=== PATIENT | female | born 1955 | race Two or more races ===

== ENCOUNTER 2016-10-12 10:30 | Inpatient (IN) | payer OTHER ==
[~2016-10-12] VITALS: Ht 165.1 cm; Wt 86.2 kg
[2016-10-23] VITALS (11 sets, daily range): BP systolic 131–150; BP diastolic 66–81
[2016-10-23] MEDS ORDERED: LYRICA150 MG ORAL (09:32)
[2016-10-23] MEDS ORDERED: LEVOTHYROXINE75 MCG ORAL (09:32)
[2016-10-23] MEDS ORDERED: ATORVASTATIN CA20 MG ORAL (09:32)
[2016-10-23] MEDS ORDERED: Vancomycin 1gm inj IVPB ONE (10:04)
[2016-10-23] MEDS ORDERED: Thrombin 5000 units TOPIC ONE (10:04)
[2016-10-23] MEDS ORDERED: Bacitracin 50000 Units Vial ONE (10:05)
[2016-10-23] MEDS ORDERED: Bupivacaine w/Epi 0.5% 30ml Vial INJ ONE (10:05)
[2016-10-23] MEDS ORDERED: NS Irrig 1000ml ONE (11:00)
[2016-10-23] MEDS ORDERED: LR 1000ml ONE (11:00)
[2016-10-23] MEDS ORDERED: fentaNYL 100 mcg/2 mL IV ONE (11:00)
[2016-10-23] MEDS ORDERED: Esmolol 100mg/10ml Inj ONE (11:00)
[2016-10-23] MEDS ORDERED: Propofol 10mg/ml 20ml IV ONE (11:00)
[2016-10-23] MEDS ORDERED: Midazolam 2mg/2ml Inj ONE (11:00)
[2016-10-23] MEDS ORDERED: Zemuron 50mg/5ml Inj IV ONE (11:00)
[2016-10-23] MEDS ORDERED: Sterile Water Irrig 1000ml IRRIG ONE (11:00)
[2016-10-23] MEDS ORDERED: Propofol 10mg/ml 100ml btl IV ONE (11:00)
--- NOTE | 2016-10-23 11:13 | Pre-Procedure Note/Attestation ---
Pre-Procedure Note/Attestation Complete Prior to Procedure Procedure Narrative: acdf [id number] Indications for Procedure Pre-Operative Diagnosis: cervical radic Attestation I attest that I discussed the nature of the procedure; its benefits; risks and complications; and alternatives (and the risks and benefits of such alternatives ), prior to the procedure, with the patient (or the patient's legal front desk representative). I attest that, if there was a reasonable possibility of needing a blood transfusion, the patient (or the patient's legal front desk representative) was given the [facility] standardized written summary, pursuant to the Davon Misael Blood Safety Act ([place] Health and Safety Code # 1645, as amended). I attest that I re-evaluated the patient just prior to the surgery and that there has been no change in the patient's H&P, except as documented below: SHAN MCKEON Oct 23, 2016 11:13
[2016-10-23] MEDS ORDERED: LR 1000ml 1,000 ML IVLG SCH (12:26)
[2016-10-23] MEDS ORDERED: LORazepam Inj 2mg/ml 1ml IV PRN (12:30)
[2016-10-23] MEDS ORDERED: Meperidine 25mg/ml Inj IV PRN (12:30)
[2016-10-23] MEDS ORDERED: Labetalol 5mg/ml 20ml vial IV PRN (12:30)
[2016-10-23] MEDS ORDERED: LR 1000ml 1,000 ML IV SCH (12:30)
--- NOTE | 2016-10-23 12:32 | Anethesia Preoperative Eval ---
Anesthesia Pre-op PMH/ROS General Date of Evaluation: Oct 23, 2016 Time of Evaluation: 11:00 Anesthesiologist: Melinda ASA Score: ASA 2 Mallampati Score Class I : Soft palate, uvula, fauces, pillars visible Class II: Soft palate, uvula, fauces visible Class III: Soft palate, base of uvula visible Class IV: Only hard plate visible Mallampati Classification: Class II Surgeon: Corey Diagnosis: Cervical radiculopathy Surgical Procedure: ACDG C6-7 Allergies: Coded Allergies: No Known Allergies (Unverified , 10/20/16) Medications: see eMAR Past Medical History Cardiovascular: Denies: CAD, HTN, TN, arrhythmia, other, valve dz Pulmonary: Denies: COPD, KEO, asthma, other Gastrointestinal/Genitourinary: Reports: GERD, Denies: CRI, ESRD, other Neurologic/Psychiatric: Denies: CVA, TIA, dementia, depression/anxiety, other Endocrine: Reports: hypothyroidism, Denies: DM, other, steroids HEENT: Denies: [place] (L), L[place] (R), cataract (L), cataract (R), glaucoma, other Hematology/Immune: Denies: DVT, anemia, bleeding disorder, other Musculoskeletal/Integumentary: Denies: DDD, DJD, OA, RA, edema, other PMH Narrative: GERD, hypothyroid, hypercholesterolemia PSxH Narrative: Cholecystectomy Anesthesia Pre-op Phys. Exam Physician Exam Last Vital Signs Date Time Temp Pulse Resp B/P Pulse Ox O2 Delivery O2 Flow Rate FiO2 10/23/16 09:39 98.9 84 16 131/81 96 Room Air Constitutional: NAD Neurologic: CN 2-12 intact Cardiovascular: RRR, no M/R/G Respiratory: CTA Gastrointestinal: S/NT/ND Airway Exam Mallampati Score: Class II MO: full ROM: full Teeth: intact Anesthesia Pre-op A/P Labs WNL Studies Pre-op Studies: EKG - NSR Risk Assessment & Plan Assessment: Hypothyroid female for ACDF Plan: Robert SANCHEZ scope Status Change Before Surgery: No Pre-Antibiotics Drug: Ancef Given Within 1 Hr of Incision: Yes Time Given: 11:15 LIS PERLA M.D. Oct 23, 2016 12:32
--- NOTE | 2016-10-23 12:33 | Immediate Post-Op Evaluation ---
Immediate Post-Op Evalulation Immediate Post-Op Evalulation Procedure: ACDF C607 Date of Evaluation: Oct 23, 2016 Time of Evaluation: 13:50 IV Fluids: 800 Estimated Blood Loss: 40 Blood Pressure Systolic: 143 Blood Pressure Diastolic: 70 Pulse Rate: 94 Respiratory Rate: 12 O2 Sat by Pulse Oximetry: 100 Temperature (Fahrenheit): 97.9 Pain Score (1-10): 0 Nausea: No Vomiting: No Complications No complication Patient Status: awake, patent, extubated, none Hydration Status: adequate Drug: Ancef Given Within 1 Hr of Incision: Yes Time Given: 11:15 LIS PERLA M.D. Oct 23, 2016 12:33
--- NOTE | 2016-10-23 13:46 | 48 Hour Post Anesthesia Eval ---
Post Anesthesia Evaluation Procedure: ACDF C607 Date of Evaluation: Oct 23, 2016 Time of Evaluation: 14:20 Blood Pressure Systolic: 136 0: 67 Pulse Rate: 86 Respiratory Rate: 16 O2 Sat by Pulse Oximetry: 100 Airway: patent Nausea: No Vomiting: No Pain Intensity: 2 Hydration Status: adequate Cardiopulmonary Status: Stable Mental Status/LOC: patient returned to baseline Follow-up Care/Observations: As per surgery Post-Anesthesia Complications: No anesthetic complication Follow-up care needed: N/A LIS PERLA M.D. Oct 23, 2016 13:46
[2016-10-23] MEDS: Hydromorphone 0.5mg/0.5ml inj IVP PRN ×2 (14:28→14:48)
--- NOTE | 2016-10-23 15:35 | Diagnostic Imaging Report ---
Indications: Neck and left upper extremity pain, cervical fusion Technique: Procedure including fluoroscopy performed by Dr. Nicole. Portable intraoperative AP and lateral spot film images of the cervical spine obtained. Findings: Comparison: None Initial image demonstrates localizing needle tip overlying the C6-7 disc space. Subsequent images demonstrate placement of fusion hardware within and across the anterior margin of the same disc space. IMPRESSION: Intraoperative changes as described
[2016-10-23] MEDS ORDERED: Norco 5mg/325mg tab ORAL PRN (16:00)
[2016-10-23] MEDS ORDERED: Norco 7.5mg/325mg tab ORAL PRN ×2 (16:00)
[2016-10-23] MEDS ORDERED: HYDROmorphone 1mg/ml Carpuject SUBQ PRN (16:00)
[2016-10-23] MEDS ORDERED: Naloxone 0.4mg/ml Inj IVP PRN (16:00)
[2016-10-23] MEDS ORDERED: HYDROmorphone 1mg/ml Carpuject IVP PRN (16:00)
[2016-10-23] MEDS: D5 1/2NS 1,000 ML IV SCH (16:25)
[2016-10-23] MEDS: Docusate 100mg cap ORAL SCH (17:13)
[2016-10-23] MEDS: ceFAZolin sod 1 GM in D5W 55 ML IV SCH (19:48)
[2016-10-23] MEDS ORDERED: Transderm Scop 1.5mg TDERMAL ONE (20:00)
[2016-10-23] MEDS ORDERED: DuoNeb 0.5-3(2.5)mg/3ml neb HHN PRN (21:00)
[2016-10-24 00:06] VITALS: BP 135/75
[2016-10-24] MEDS: ceFAZolin sod 1 GM in D5W 55 ML IV SCH ×2 (02:11→10:21)
[2016-10-24] MEDS: D5 1/2NS 1,000 ML IV SCH ×2 (02:11→10:20)
[2016-10-24] MEDS: Chloraseptic Spray 20mL Bottle ORAL PRN ×2 (03:50→08:15)
[2016-10-24 04:00] VITALS: BP 129/76
[2016-10-24 07:56] VITALS: BP 124/73
[2016-10-24] MEDS: Docusate 100mg cap ORAL SCH (08:23)
[2016-10-24] MEDS ORDERED: Lyrica 75mg cap ORAL SCH (09:00)
[2016-10-24] MEDS ORDERED: SOMA350 MG PO (11:35)
[2016-10-24] MEDS ORDERED: NORCO 5-325 TA1 EAC1 ORAL (11:36)
[2016-10-24 12:43] VITALS: BP 121/53
[2016-10-24] MEDS ORDERED: D5 1/2NS 1000ml IV ONE (15:24)
--- NOTE | 2016-10-26 22:10 | Operative Note - Dictated ---
DATE OF OPERATION: 10/23/2016 PREOPERATIVE DIAGNOSIS: C6-C7 disc protrusion with left upper extremity radiculopathy. POSTOPERATIVE DIAGNOSIS: C6-C7 disc protrusion with left upper extremity radiculopathy. PROCEDURE PERFORMED: 1. Interbody arthrodesis at C6-C7. 2. Anterior cervical instrumentation at C6-C7. 3. Anterior cervical diskectomy and decompression of the spinal cord at C6-C7. 4. Anterior foraminotomy at C6-C7. 5. Anterior autologous bone harvest from C6-C7. 6. Allograft placement. 7. Intraoperative use of fluoroscopy. 8. Number intraoperative use of microscope. 9. SSEP/MET/EMG. SURGEON: Huang Nicole M.D. SKIN LAP BONDER: Bassem Tello M.D. ANESTHESIA: General endotracheal anesthesia. ANESTHESIOLOGIST: Davon Lawrence M.D. EBL: Less than 50 mL IV antibiotics, 2 g of Ancef. COMPLICATIONS: None. INDICATIONS: Ms. Rios is a female who failed nonoperative treatment and option for above treatment was given to her. Risks, alternatives, and benefits were discussed with the patient. Risks include, but not limited to, anesthesia complications including , medical complications including liver, kidney, and cardiopulmonary deficits infection, bleeding, neurovascular injury, swallowing difficulties, esophageal injury, tracheal injury, recurrent laryngeal nerve injury as well as other complications. The patient understood and wished to proceed. All the patient's questions were answered. Written and verbal consent was given. No guarantees were given. OPERATIVE FINDINGS: Herniated nucleus pulposus at C6-C7 with stenosis and neuroforaminal stenosis at C6-C7. OPERATION: The patient was brought into the operating room supine on a stretcher. Appropriate IV lines were placed by the anesthesiologist and 2 g of Ancef was administered 30 minutes before the incision. A surgical time-out was called. The patient was placed on the operating room table. The neck was placed in neutral alignment. The arms were tucked by the side all bony prominences were padded as well as the four extremities SSEP/EMG/MET lines and leads were placed and baseline recordings were done. Preoperative fluoroscopy revealed the planned incision to be over the right side over the C6-C7 interspace. Fluoroscopy revealed the neck to be in adequate alignment. The neck was prepped and draped in the usual sterile fashion. An incision was carried out over the anterior right side of the neck in the crease of the neck. Hemostasis was achieved with bipolar cautery. The platysma was incised inline with the skin incision. Blunt dissection was carried out in the interval between the strap muscles and sternocleidomastoid, superficial cervical fascia was dissected caudally as well as cephalad. Carotid pulse was palpated and was found to be low lateral to the field of dissection. Deep cervical fascia was encountered once the deep cervical fascia was found blunt dissection was carried out with [place]. Finger dissection was done. The longus coli was carefully subperiosteally dissected off of the spine. Spinal needle was placed at the C6-C7 interspace was positively identified. The intraoperatively sterilely draped microscope was used throughout the case from the beginning to the end of the case. At this point, attention was diverted to the diskectomy a #15 scalpel was used to make an incision in the anterior anulus, #2 and #3 straight curved curettes were used to drill a radical discectomy. Endplate cartilage was removed. Endplate bone was well preserved and at this point a high-speed drill was used to drill the posterior aspect of the vertebral bodies and the bone was saved for later implantation into the interbody space. The PLL was encountered with #1 and #2 microcytic curette the PLL was removed. The disc herniation was removed. A complete decompression of the spinal cord as well as the exiting the C7 nerve roots was done and anterior foraminotomy was completed. A check of the foramen was done and the foramina was found to be well decompressed and free of all disc herniation. All loose debris was removed. The wound was copiously irrigated with triple antibiotic solution. At this point, attention was diverted to sizing for the interspace a trial from the spinal element system was used and a 16 x 13 x 7 mm in height lordotic peek cage was chosen, packed with [place] allograft and local autograft and tamped into place in the interbody space at C6-C7. with nice lordosis of the implant implants opposed the endplates nicely and was well fit now. A 10-mm [place] plate was chosen and fixed to the anterior surface of the C6 and C7 vertebral bodies with 4.0 x 14 mm self-drilling screws. Each screw had excellent purchase and fat below the locking mechanism of the plate appropriately. Final AP and lateral x-rays revealed all instrumentation to be in excellent position and good recreation of the normal anatomical architecture. At this point, the wound was copiously irrigated with triple antibiotic solution. All sponge, needle, and instrument counts were correct. The platysma and hemostasis was achieved and there was no bleeding and therefore, a drain was deemed not to be necessary. The platysma was closed with 3-0 Vicryl sutures. The subcuticular and subdermal layers were closed with 3-0 Vicryl sutures. The skin was closed with Dermabond. Sterile dressing tape was placed. Cervical collar was placed. The patient was extubated in stable condition, was found to be neurovascularly intact and taken to the recovery room in stable condition. She was given a postoperative instructions as well as postoperative prescription and a follow up appointment. Huang Nicole M.D. DR: Cuauhtemoc JOB#: [id number] CC:
--- NOTE | 2016-10-27 10:19 | Discharge Summary ---
Discharge Summary Hospital Course Date of Admission Oct 23, 2016 at 08:01 Date of Discharge Oct 24, 2016 at 15:25 Admitting Diagnosis HPI Ashley Rios is a 61 year old female who was admitted on Oct 23, 2016 at 08: 01 for Cervical Radiculopathy Hospital Course [id number] Discharge Discharge Disposition Patient was discharged to Home () Discharge Diagnoses: Yocasta Cohen NP Oct 27, 2016 10:19
--- NOTE | 2016-10-28 02:08 | Discharge Summary 2 SIG ---
DATE OF ADMISSION: 10/23/2016 DATE OF DISCHARGE: 10/24/2016 BRIEF HOSPITAL COURSE: The patient is a 61-year-old female, who failed nonoperative treatment options and still presented with left upper extremity radiculopathy. She was admitted on 10/23/2016 and underwent anterior cervical diskectomy and decompression at C6-C7. Postoperatively, she was given pain management. She underwent physical therapy and occupational therapy. Diet was eventually advanced. She was stable and was discharged home to follow up as outpatient. FINAL DIAGNOSES: Herniated nucleus pulposus at C6-C7 with stenosis and neuroforaminal stenosis status post anterior cervical diskectomy and decompression, anterior foraminotomy at C6-C7. Huang Nicole M.D. I have been assigned to dictate discharge summary on this account and I was not involved in the patient's management. Yocasta Cohen N.P. DR: MANOJ JOB#: [id number] CC: CEASAR
== END 2016-10-24 15:25 | disposition home or self-care (01) | DRG 473 ==
LOC: EDBD 10-23 08:01 → SDSOVERFLO 10-23 08:01 → 3E 10-23 15:30
DX: M50.123 Cervical disc disorder at C6-C7 level with radiculopathy (principal); M48.02 Spinal stenosis, cervical region; E03.9 Hypothyroidism, unspecified; E66.9 Obesity, unspecified; E78.00 Pure hypercholesterolemia, unspecified
CPT/HCPCS: 36415; 72040; 76001; 86850; 86900; 86901; 87081; 94003; 94150; 94640; 94664; 94760; J2250; J2405